=== PATIENT | female | born 1995 | race Caucasian/White ===

== ENCOUNTER 2018-04-27 00:45 | Emergency (ER) | payer SELFPAY, OTHER ==
[2018-04-27 01:23] LABS: URINE HCG POC HCG NEGATIVE (Negative)
[2018-04-27 01:49] LABS: BILIRUBIN,URINE NEGATIVE (NEG); CLARITY,URINE CLEAR; COLOR,URINE YELLOW; GLUCOSE,URINE NEGATIVE (NEG); NITRITE,URINE NEGATIVE (NEG); PH,URINE 5.5; PROTEIN,URINE NEGATIVE (NEG-TRACE)
[2018-04-27 01:58] LABS: BACTERIA,URINE 0 /HPF (0-FEW); RBC,URINE OCC /HPF (0-2); SQUAMOUS EPITHELIAL CELL,UR FEW /LPF
[2018-04-27] MEDS: PENICILLIN G BENZATHINE LA 2,400,000 UNIT/4 ML DISP.SYRIN. IM (02:04)
[2018-04-27] MEDS: cefTRIAXone IM 250 MG VIAL IM (02:05)
[2018-04-27] MEDS: AZITHROMYCIN 250 MG TABLET. PO (02:05)
== END 2018-04-27 02:19 | disposition home or self-care (01) ==
LOC: ER 00:45
DX: N73.9 Female pelvic inflammatory disease, unspecified (principal); Z90.89 Acquired absence of other organs; Z88.2 Allergy status to sulfonamides
CPT/HCPCS: 81001; 81025; 96372; 99284; J0561; J0696; Q0111; Q0144